=== PATIENT | female | born 1985 | race American Indian/Alaskan Native ===

== ENCOUNTER 2016-10-11 12:30 | Emergency (ER) | payer OTHER ==
--- NOTE | 2016-10-11 13:04 | Emergency Department Report ---
Entered by MEL SPRAGUE, acting as scribe for CASPER BISHOP NP. Chief Complaint: Nausea/Vomiting/Diarrhea Stated Complaint: EMESIS X 3WKS/CHEST/STOMACH PAIN/PREG UNK WKS Time Seen by Provider: 10/11/16 12:45 - HPI History of Present Illness: 31 y/o female, nontoxic, well nourished in appearance, no acute signs of distress presents with n/v that started 2 weeks ago. Sx include chest, abd and throat "burning" during vomiting episode but pt denies vaginal bleeding, abd pain, diarrhea, fever, chills, chest pain, SOB, ROBLES or dizziness, numbness, tingling. Pt notes taking a positive test 2 days ago. A1. - ROS Review of Systems: Sx include n/v and chest, abd, and throat "burning" pt denies vaginal bleeding, abd apain, diarrhea, fever, chills, chest pain, SOB , ROBLES or dizziness, numbness, tingling - Exam Vital Signs: Vital Signs 10/11/16 12:39 Temperature 98.7 F Pulse Rate 89 Respiratory 18 Rate Blood Pressure 139/91 O2 Sat by Pulse 100 Oximetry Physical Exam: Constitutional: Non toxic appearing, NAD. Cardiovascular: Normal rate and rhythm with normal S1/S2 sounds. Respiratory: No respiratory distress. Lung sounds clear to auscultation bilaterally. Abdomen: Soft, nontender, and nondistended. Positive bowel sounds. No hepatosplenomegaly was noted. No guarding or rebound tenderness, negative epigastric bruit. Negative psoas sign, negative beltran sign, negative McBurneys sign MSE screening note: Focused history and physical exam performed. Due to findings the following was ordered: BMP, CBC, HCG Quantitative, UA, US less than 14 wks, US Transvaginal, Type and Screen. ED Disposition for MSE Condition: Stable Referrals: PRIMARY CARE,MD [Primary Care Provider] - 3-5 Days This documentation as recorded by the scribeCELESTINE RYAN,accurately reflects the service I personally performed and the decisions made by ,CASPER BISHOP, CHANTEL.
[2016-10-11 13:48] LABS: Basophils % (Auto) 0.7 % (0.0-1.8); Eosinophils % (Auto) 0.2 % (0.0-4.3); Hematocrit 40.2 % (30.3-42.9); Hemoglobin 13.2 gm/dl (10.1-14.3); Mean Corpuscular HGB Conc 33 % (30-34); Mean Corpuscular Hemoglobin 28 pg (28-32); Mean Corpuscular Volume 87 fl (79-97); Red Blood Count 4.64 M/mm3 (3.65-5.03); Red Cell Distribution Width 14.6 % (13.2-15.2); White Blood Count 10.9 K/mm3 (4.5-11.0)
[2016-10-11 14:29] LABS: Anion Gap 22 mmol/L; BUN/Creatinine Ratio 11.42; Blood Urea Nitrogen 8 mg/dL (7-17); Calcium 8.9 mg/dL (8.4-10.2); Carbon Dioxide 18 mmol/L (22-30); Chloride 100.8 mmol/L (98-107); Glucose 88 mg/dL (65-100); Potassium 4.1 mmol/L (3.6-5.0); Sodium 137 mmol/L (137-145)
[2016-10-11 14:40] LABS: Bilirubin,Urine NEG (Negative); Blood,Urine SM (Negative); Ketones,Urine 80 mg/dL (Negative); Leukocyte Esterase,Urine TR (Negative); Mucus,Urine 3+ /HPF; Nitrite,Urine NEG (Negative)
[2016-10-11 14:57] LABS: Anisocytosis 1+; Basophils % (Manual) 0 % (0.0-1.8); Blastocytes % (Manual) 0 %; Diff Status Complete; Eosinophils % (Manual) 0 % (0.0-4.3); Hypochromasia 2+; Microcytosis 1+; Platelet Estimate Consistent w Auto
[2016-10-11 14:58] LABS: Platelet Count 269 K/mm3 (140-440)
--- NOTE | 2016-10-11 15:36 | Ultrasound Report ---
Transabdominal and transvaginal OB ultrasound. History: Hyperemesis. Findings: There is a single intrauterine with a crown-rump length measuring 1.1 cm which corresponds to gestational age of 7 weeks 2 days. The heart rate is 137 beats per minute. There is no evidence of subchorionic hemorrhage. There are multiple uterine fibroids. The left ovary is normal. In the right ovary, there is a heterogeneous lesion which measures 2.9 cm in diameter. There is minimal fluid within the cul-de-sac. Impression: 1. Viable IUP at 7 weeks 2 days gestation. 2. Multiple uterine fibroids. 3. 2.9 cm solid lesion in the right ovary is nonspecific. Minimal fluid is noted within the cul-de-sac.
[2016-10-11] MEDS ORDERED: REGLAN IV ONE (16:19)
[2016-10-11] MEDS ORDERED: REGLAN ONE ×2 (16:49→16:51)
--- NOTE | 2016-10-11 17:42 | Emergency Department Report ---
ED N/V/D HPI - General Chief complaint: Nausea/Vomiting/Diarrhea Stated complaint: EMESIS X WKS/PREG UNK WKS Time Seen by Provider: 10/11/16 13:02 Source: patient Mode of arrival: Ambulatory Limitations: No Limitations - History of Present Illness Initial comments: 31-year-old female 3 presented to the emergency room complaining of nausea/vomiting/diarrhea. Patient states symptom onset started 2 week prior first week she had all 3 symptoms. This week patient has nausea and vomiting is unable to keep solids or fluids down. Patient states the emesis is food products. She denies blood or bile. Patient denies: abdominal pain and chest pain that was noted nursing triage note. Patient states her only complaint is that she can't "keep anything down". She denies vaginal bleeding or vaginal discharge. MD complaint: nausea, vomiting, diarrhea -: Gradual, week(s) (2) Description of Vomiting: food contents Description of Diarrhea: water Associated Abdominal Pain: No Radiation: none Severity: moderate Pain Scale: 0 Consistency: intermittent Improves with: none Worsens with: eating Associated Symptoms: nausea/vomiting. denies: chest pain, cough, diaphoresis, malaise, shortness of breath, weakness - Related Data Home Medications Medication Instructions Recorded Confirmed Last Taken Levothyroxine [Synthroid] 50 mcg PO QAM 10/11/16 10/11/16 Unknown Previous Rx's Medication Instructions Recorded Last Taken Type Metoclopramide [Reglan] 10 mg PO TID #30 tab 10/11/16 Unknown Rx Pnv#24/Iron Aa Cassi/FA/Dha 1 each PO DAILY #30 combo..pkg 10/11/16 Unknown Rx [ Dha+Complete ] Allergies Allergy/AdvReac Type Severity Reaction Status Date / Time No Known Allergies Allergy Verified 10/11/16 12:36 ED Review of Systems ROS: Stated complaint: EMESIS X 3WKS/CHEST/STOMACH PAIN/PREG UNK WKS Other details as noted in HPI Constitutional: denies: chills, fever Eyes: denies: eye pain, eye discharge, vision change ENT: denies: ear pain, throat pain Respiratory: denies: cough, shortness of breath, wheezing Cardiovascular: denies: chest pain, palpitations Endocrine: no symptoms reported Gastrointestinal: nausea, diarrhea. denies: abdominal pain Genitourinary: denies: urgency, dysuria, discharge Musculoskeletal: denies: back pain, joint swelling, arthralgia Skin: denies: rash, lesions Neurological: denies: headache, weakness, paresthesias Psychiatric: denies: anxiety, depression Hematological/Lymphatic: denies: easy bleeding, easy bruising ED Past Medical Hx - Past Medical History Additional medical history: HYPOTHYROIDISM. OBESITY - Surgical History Additional Surgical History: REMOVAL OF SWEAT GLANDS - Social History Smoking Status: Never Smoker Substance Use Type: None - Medications Home Medications: Home Medications Medication Instructions Recorded Confirmed Last Taken Type Levothyroxine [Synthroid] 50 mcg PO QAM 10/11/16 10/11/16 Unknown History Metoclopramide [Reglan] 10 mg PO TID #30 tab 10/11/16 Unknown Rx Pnv#24/Iron Aa Cassi/FA/Dha 1 each PO DAILY #30 combo..pkg 10/11/16 Unknown Rx [ Dha+Complete ] ED Physical Exam - General Limitations: No Limitations General appearance: alert, in no apparent distress - Head Head exam: Present: atraumatic, normocephalic - Eye Eye exam: Present: normal appearance - ENT ENT exam: Present: mucous membranes moist - Neck Neck exam: Present: normal inspection - Respiratory Respiratory exam: Present: normal lung sounds bilaterally. Absent: respiratory distress - Cardiovascular Cardiovascular Exam: Present: regular rate, normal rhythm. Absent: systolic murmur, diastolic murmur, rubs, gallop - GI/Abdominal GI/Abdominal exam: Present: soft, normal bowel sounds, other (abdomen soft nontender.). Absent: distended, tenderness, guarding - Extremities Exam Extremities exam: Present: normal inspection - Back Exam Back exam: Present: normal inspection - Neurological Exam Neurological exam: Present: alert, oriented X3 - Psychiatric Psychiatric exam: Present: normal affect, normal mood - Skin Skin exam: Present: warm, dry, intact, normal color. Absent: rash ED Course Vital Signs 10/11/16 10/11/16 10/11/16 12:39 14:11 16:03 Temperature 98.7 F Pulse Rate 89 Respiratory 18 12 Rate Blood Pressure 139/91 Blood Pressure [Right] O2 Sat by Pulse 100 98 100 Oximetry 10/11/16 17:58 Temperature 98.6 F Pulse Rate 74 Respiratory 18 Rate Blood Pressure Blood Pressure 107/42 [Right] O2 Sat by Pulse 100 Oximetry - Reevaluation(s) Reevaluation #1: 10/11/16 17:18 Patient resting comfortably. ED Medical Decision Making - Lab Data Result diagrams: 10/11/16 13:18 10/11/16 13:18 - Medical Decision Making 31-year-old female with no past medical history presenting to the emergency department with nausea and vomiting. Likely patient has hyperemesis gravidarum. Abdominal exam soft, nontender. I have low suspicion for acute abdomen, ovarian torsion, or ectopic . Patient states since having treatment in ED she is able tolerate by mouth she feels stable DC home and follow up with [facility] CL[facility]. Patient verbalized understanding of return precautions. Critical Care Time: No Critical care attestation.: If time is entered above; I have spent that time in minutes in the direct care of this critically ill patient, excluding procedure time. ED Disposition Clinical Impression: Hyperemesis Disposition: DC-01 TO HOME OR SELFCARE Is pt being admited?: No Does the pt Need Aspirin: No Condition: Stable Instructions: Morning Sickness (ED) Prescriptions: Metoclopramide [Reglan] 10 mg PO TID #30 tab Pnv#24/Iron Aa Cassi/FA/Dha [ Dha+Complete ] 1 each PO DAILY #30 combo..pkg Referrals: PRIMARY MD ANU [Primary Care Provider] - 3-5 Days ANDREW DRISCOLL MD [Staff Physician] - 3-5 Days Forms: Work/School Release Form(ED) Time of Disposition: 17:46
[2016-10-11 18:15] VITALS: BP 107/42
== END 2016-10-11 17:58 | disposition home or self-care (01) ==
LOC: ED 12:30
DX: O21.0 Mild hyperemesis gravidarum (principal); Z3A.01 Less than 8 weeks gestation of pregnancy
CPT/HCPCS: 36415; 76801; 76817; 80048; 81001; 84702; 85007; 85025; 86850; 86900; 86901; 96374; 99284; J2765

== ENCOUNTER 2016-10-21 08:19 | Emergency (ER) | payer SELFPAY ==
[2016-10-21] MEDS ORDERED: ZOFRAN ODT ONE (09:19)
[2016-10-21] MEDS ORDERED: ZOFRAN ODT PO ONE (09:21)
[2016-10-21 10:12] LABS: Basophils % (Auto) 0.6 % (0.0-1.8); Eosinophils % (Auto) 0.4 % (0.0-4.3); Hematocrit 39.7 % (30.3-42.9); Hemoglobin 13.2 gm/dl (10.1-14.3); Mean Corpuscular HGB Conc 33 % (30-34); Mean Corpuscular Hemoglobin 28 pg (28-32); Mean Corpuscular Volume 85 fl (79-97); Platelet Count 289 K/mm3 (140-440); Red Blood Count 4.66 M/mm3 (3.65-5.03); Red Cell Distribution Width 14.8 % (13.2-15.2); White Blood Count 8.8 K/mm3 (4.5-11.0)
[2016-10-21 10:17] LABS: Bacteria,Urine 1+ /HPF (Negative); Bilirubin,Urine NEG (Negative); Blood,Urine NEG (Negative); Ketones,Urine TR mg/dL (Negative); Leukocyte Esterase,Urine NEG (Negative); Mucus,Urine 3+ /HPF; Nitrite,Urine NEG (Negative); Urobilinogen,Urine < 2.0 mg/dL (<2.0)
[2016-10-21 10:30] LABS: Alanine Aminotransferase 11 units/L (7-56); Albumin 3.9 g/dL (3.9-5); Albumin/Globulin Ratio 1.2 %; Alkaline Phosphatase 48 units/L (35-129); Anion Gap 15 mmol/L; BUN/Creatinine Ratio 11.25; Blood Urea Nitrogen 9 mg/dL (7-17); Carbon Dioxide 26 mmol/L (22-30); Chloride 98.7 mmol/L (98-107); Glucose 94 mg/dL (65-100); Lipase 22 units/L (13-60); Potassium 3.9 mmol/L (3.6-5.0); Sodium 136 mmol/L (137-145); Total Protein 7.1 g/dL (6.3-8.2)
[2016-10-21] MEDS ORDERED: ZOFRAN IV ONE (16:23)
[2016-10-21] MEDS ORDERED: NACL 0.9% 1000 ML 1,000 ML IV ONE (16:23)
--- NOTE | 2016-10-21 16:30 | Emergency Department Report ---
HPI - General Chief Complaint: Nausea/Vomiting/Diarrhea Time Seen by Provider: 10/21/16 16:17 - HPI HPI: Room 36 The patient is a 31-year-old female presenting with a chief complaint of nausea and vomiting. Patient states last week she diagnosis hyperemesis gravidarum. The patient states 3 weeks ago she developed intractable nausea and vomiting last week came to the ED. The patient states her symptoms improved for 1 day. The patient states she was discharged home and Zofran will only help if she took 8 mg. The patient states for proximal one week she has had continuous nausea and vomiting and inability to tolerate anything by mouth. Patient admits to lower abdominal pain with the vomiting. Patient denies vaginal bleeding, or fever. Patient does admit to chills Location: Gastrointestinal system Duration: 3 weeks Quality: Nausea Severity: Moderate Modifying factors: [see above] Context: [see above] Mode of transportation: Unknown ED Past Medical Hx - Past Medical History Additional medical history: HYPOTHYROIDISM. OBESITY - Surgical History Additional Surgical History: REMOVAL OF SWEAT GLANDS - Family History Family history: no significant - Social History Smoking Status: Never Smoker Substance Use Type: None - Medications Home Medications: Home Medications Medication Instructions Recorded Confirmed Last Taken Type Levothyroxine [Synthroid] 50 mcg PO QAM 10/11/16 10/11/16 Unknown History Metoclopramide [Reglan] 10 mg PO TID #30 tab 10/11/16 Unknown Rx Pnv#24/Iron Aa Cassi/FA/Dha 1 each PO DAILY #30 combo..pkg 10/11/16 Unknown Rx [ Dha+Complete ] Nitrofurantoin Irwin/M-Cryst 100 mg PO Q12HR #14 capsule 10/21/16 Unknown Rx [Macrobid CAP] Ondansetron [Zofran ODT TAB] 8 mg PO Q8HR #30 tab.rapdis 10/21/16 Unknown Rx ED Review of Systems ROS: Stated complaint: HYPEREMESIS Other details as noted in HPI Comment: All other systems reviewed and negative Constitutional: denies: chills, fever Eyes: denies: eye pain, eye discharge, vision change ENT: denies: ear pain, throat pain Respiratory: denies: cough, shortness of breath, wheezing Cardiovascular: denies: chest pain, palpitations Endocrine: no symptoms reported Gastrointestinal: abdominal pain, nausea, vomiting Genitourinary: denies: urgency, dysuria, discharge Musculoskeletal: denies: back pain, joint swelling, arthralgia Skin: denies: rash, lesions Neurological: denies: headache, weakness, paresthesias Psychiatric: denies: anxiety, depression Hematological/Lymphatic: denies: easy bleeding, easy bruising Physical Exam - Physical Exam Vital Signs: Vital Signs 10/21/16 10/21/16 09:12 15:27 Temperature 98.5 F 97.8 F Pulse Rate 81 64 Respiratory 20 18 Rate Blood Pressure 122/78 Blood Pressure 119/77 [Left] O2 Sat by Pulse 100 100 Oximetry Physical Exam: GENERAL: The patient is well-developed well-nourished female lying on stretcher not appearing to be in acute distress. [] HEENT: Normocephalic. Atraumatic. Extraocular motions are intact. Patient has moist mucous membranes. NECK: Supple. Trachea midline CHEST/LUNGS: Clear to auscultation. There is no respiratory distress noted. HEART/CARDIOVASCULAR: Regular. There is no tachycardia. There is no gallop rub or murmur. ABDOMEN: Abdomen is soft, with mild suprapubic tenderness to palpation.. Patient has normal bowel sounds. There is no abdominal distention. SKIN: There is no rash. There is no edema. There is no diaphoresis. NEURO: The patient is awake, alert, and oriented. The patient is cooperative. The patient has normal speech MUSCULOSKELETAL: There is no evidence of acute injury. ED Course Vital Signs 10/21/16 10/21/16 09:12 15:27 Temperature 98.5 F 97.8 F Pulse Rate 81 64 Respiratory 20 18 Rate Blood Pressure 122/78 Blood Pressure 119/77 [Left] O2 Sat by Pulse 100 100 Oximetry - Reevaluation(s) Reevaluation #1: 10/21/16 18:57 Patient tolerating po ED Medical Decision Making - Lab Data Result diagrams: 10/21/16 09:52 10/21/16 09:52 Laboratory Tests 10/21/16 10/21/16 10/21/16 09:52 09:52 09:52 WBC 8.8 RBC 4.66 Hgb 13.2 Hct 39.7 MCV 85 MCH 28 MCHC 33 RDW 14.8 Plt Count 289 Lymph % (Auto) 23.1 Irwin % (Auto) 6.4 Eos % (Auto) 0.4 Baso % (Auto) 0.6 Lymph # 2.0 Irwin # 0.6 Eos # 0.0 Baso # 0.1 Seg Neutrophils % 69.5 Seg Neutrophils # 6.1 Sodium 136 L Potassium 3.9 Chloride 98.7 Carbon Dioxide 26 Anion Gap 15 BUN 9 Creatinine 0.8 Estimated GFR > 60 BUN/Creatinine Ratio 11.25 Glucose 94 Calcium 9.0 Total Bilirubin 0.50 AST 15 ALT 11 Alkaline Phosphatase 48 Total Protein 7.1 Albumin 3.9 Albumin/Globulin Ratio 1.2 Lipase 22 HCG, Quant [id number] H Urine Color Urine Turbidity Urine pH Ur Specific [place] Urine Protein Urine Glucose (UA) Urine Ketones Urine Blood Urine Nitrite Urine Bilirubin Urine Urobilinogen Ur Leukocyte Esterase Urine WBC (Auto) Urine RBC (Auto) U Epithel Cells (Auto) Urine Bacteria (Auto) Urine Mucus 10/21/16 10:02 WBC RBC Hgb Hct MCV MCH MCHC RDW Plt Count Lymph % (Auto) Irwin % (Auto) Eos % (Auto) Baso % (Auto) Lymph # Irwin # Eos # Baso # Seg Neutrophils % Seg Neutrophils # Sodium Potassium Chloride Carbon Dioxide Anion Gap BUN Creatinine Estimated GFR BUN/Creatinine Ratio Glucose Calcium Total Bilirubin AST ALT Alkaline Phosphatase Total Protein Albumin Albumin/Globulin Ratio Lipase HCG, Quant Urine Color Claritza Urine Turbidity Clear Urine pH 6.0 Ur Specific [place] 1.034 H Urine Protein 30 mg/dl Urine Glucose (UA) Neg Urine Ketones Tr Urine Blood Neg Urine Nitrite Neg Urine Bilirubin Neg Urine Urobilinogen < 2.0 Ur Leukocyte Esterase Neg Urine WBC (Auto) 10.0 H Urine RBC (Auto) 6.0 U Epithel Cells (Auto) 3.0 Urine Bacteria (Auto) 1+ Urine Mucus 3+ - Radiology Data Radiology results: report reviewed (pelvic ultrasound), image reviewed (pelvic ultrasound) Pelvic ultrasound (read by radiologist)-no sonographic evidence of acute pelvic pathology. Lower right uterine nodule may be a fibroid. heart rate 155 bpm. - Differential Diagnosis hyperemesis gravidarum, UTI, subchorionic hemorrhage Critical care attestation.: If time is entered above; I have spent that time in minutes in the direct care of this critically ill patient, excluding procedure time. ED Disposition Clinical Impression: Hyperemesis gravidarum, UTI (urinary tract infection) Disposition: TO HOME OR SELFCARE Is pt being admited?: No Does the pt Need Aspirin: No Condition: Stable Instructions: Hyperemesis Gravidarum (ED) Additional Instructions: Return to the emergency department immediately should you develop worsening symptoms, fever, inability to tolerate food or liquid or any other concerns. Prescriptions: Nitrofurantoin Irwin/M-Cryst [Macrobid CAP] 100 mg PO Q12HR #14 capsule Ondansetron [Zofran ODT TAB] 8 mg PO Q8HR #30 tab.jovi Referrals: PRIMARY CARE, [Primary Care Provider] - 3-5 Days [facility] [Provider Group] - 3-5 Days Time of Disposition: 18:58
--- NOTE | 2016-10-21 17:58 | Ultrasound Report ---
FINAL REPORT EXAM: US OB \T\lt; = 14 WEEKS FETUS, TRANSABDOMINAL AND ENDOVAGINAL HISTORY: vomiting and abdominal pain TECHNIQUE: Pelvis ultrasound using 2 different techniques: TRANSABDOMINAL and TRANSVAGINAL PRIORS: None. FINDINGS: A gestational sac is present in the endometrial cavity containing a yolk sac and pole. viability is documented with evidence of cardiac activity. pole crown-rump length: 21.8 mm heart rate: 155 beats per minute Estimated gestational age by ultrasound 8 weeks 6 days Estimated delivery date: 05/27/2017 Two point sore cm nonspecific hypoechoic nodule in lower right uterus may be a fibroid. The uterine echotexture is otherwise homogenous and without evidence of subchorionic hemorrhage. No evidence of solid ovarian mass. The adnexa are normal. There is no cul-de-sac free fluid. IMPRESSION: Single viable intrauterine with the above parameters Lower right uterine nodule may be a fibroid
--- NOTE | 2016-10-21 17:59 | Ultrasound Report ---
FINAL REPORT EXAM: US OB TRANSVAGINAL HISTORY: vomiting and abdominal pain, pt has prior u/s TECHNIQUE: Ultrasound evaluation of the pelvis using TRANSVAGINAL technique PRIORS: Transabdominal pelvic ultrasound 10/21/2016 FINDINGS: A gestational sac is present in the endometrial cavity containing a yolk sac and pole. viability is documented with evidence of cardiac activity. pole crown-rump length: 21.8 mm heart rate: 155 beats per minute Estimated gestational age by ultrasound 8 weeks 6 days Estimated delivery date: 05/27/2017 2.4 cm nonspecific hypoechoic nodule in lower right uterus may be a fibroid. The uterine echotexture is otherwise homogenous and without evidence of subchorionic hemorrhage. No evidence of solid ovarian mass. The adnexa are normal. There is no cul-de-sac free fluid. IMPRESSION: No sonographic evidence of acute pelvic pathology Lower right uterine nodule may be a fibroid
[2016-10-21 19:27] VITALS: BP 107/64
== END 2016-10-21 20:33 | disposition home or self-care (01) ==
LOC: ED 08:19
DX: O21.0 Mild hyperemesis gravidarum (principal); O23.31 Infections of other parts of urinary tract in pregnancy, first trimester; E03.9 Hypothyroidism, unspecified; E66.9 Obesity, unspecified
CPT/HCPCS: 36415; 76801; 76817; 80053; 81001; 83690; 84702; 85025; 96361; 96374; 99284; J2405; J7030; Q0162